=== PATIENT | male | born 1965 | race Hispanic/Latino ===

== ENCOUNTER → 2025-05-13 | Day surgery (SDC) | payer BC ==
[2025-05-06 09:58] LABS: BASOPHILS % 1.2 % (0.0-1.0); EOSINOPHILS % 15.2 % (0.0-6.0); LYMPHOCYTES % 28.5 % (18.0-39.1); MONOCYTES % 8.6 % (4.4-11.3); NEUTROPHILS % 46.3 % (38.7-80.0); RED CELL DISTRIBUTION WIDTH 12.2 % (11.7-14.4)
[2025-05-06 10:25] LABS: EST GLOMERULAR FILTRATION RATE 95.0 ML/MIN (>=60)
[~2025-05-13] MED LIST: ACETAMINOPHEN 1000 MG/100 ML 100 ML IV ONE; BENEFIBER1 EAC1; DEXAMETHASONE SOD PHOS INJ 4 MG/ML SDV ONE; DEXMEDETOMIDINE HCL 2 ML ONE; FAMOTIDINE 20 MG/2 ML VIAL IV ONE; FENTANYL CITRATE/PF 100MCG/2 ML INJ ONE; GLYCOPYRROLATE INJ 0.2 MG/ML VIAL ONE; HYDROCODONE/APAP 7.5MG-325MG 1 EA TAB ONE; KETAMINE HCL INJ 50 MG/ML 10 ML VIAL ONE; LIDOCAINE HCL 2% LOCAL INJ 5 ML SDV VIAL INJ ONE; METOCLOPRAMIDE HCL 10 MG/2ML VIAL ONE; MIDAZOLAM HCL 2 MG/2 ML VIAL ONE; ONDANSETRON HCL INJ 2MG/ML 2ML 2 MG/ML VIAL ONE; PROPOFOL IV EMULSION 10 MG/ML 20 ML VIAL ONE; PROTONIX20 MG PO; ROCURONIUM BROMIDE 1 ML IV ONE; SUGAMMADEX SODIUM 200 MG/2 ML VIAL IV ONE
[2025-05-13] MEDS: LACTATED RINGER'S 1,000 ML ONE (08:59)
[2025-05-13 13:10] VITALS: TEMP 97
[2025-05-13] MEDS: HYDROCODONE/APAP 7.5MG-325MG 1 EA TAB PO ONE (13:20)
[2025-05-13 13:45] VITALS: BP 149/92; PULSE 67; RESP 16; O2SAT 100
== END | disposition home or self-care (01) ==
LOC: OR 08:36
PROVIDERS: ATTEND Surgery
DX: K80.10 Calculus of gallbladder with chronic cholecystitis without obstruction (principal); Z01.810 Encounter for preprocedural cardiovascular examination; Z01.812 Encounter for preprocedural laboratory examination; Z01.818 Encounter for other preprocedural examination
CPT/HCPCS: 36415; 47562; 71046; 80053; 85025; 88304; 93005; C1766; J0131; J1100; J1308; J2003; J2250; J2405; J2704; J2765; J3010; J7121